=== PATIENT | male | born 1935 | race Caucasian/White ===

== ENCOUNTER → 2019-06-05 | Outpatient (CLI) | payer OTHER ==
[~2019-06-05] MED LIST: ENAL5TAB PO; FINA1TAB13 PO; LATA2.5D2 OP; TAMS0.4C32 PO
== END | disposition home or self-care (01) ==
LOC: RAH 10:00
PROVIDERS: ATTEND Internal Medicine Cardiovascular Disease
DX: Z13.6 Encounter for screening for cardiovascular disorders (principal)
CPT/HCPCS: 75571

== ENCOUNTER 2019-10-21 06:10 | Day surgery (SDC) | payer OTHER ==
[2019-10-16 11:41] VITALS: BP 199/67
[2019-10-16 11:46] LABS: EOSINOPHILS % (AUTO) 4.2 % (0.0-8.0); HEMATOCRIT 41.9 % (42-54); LYMPHOCYTES % (AUTO) 33.3 % (21.0-51.0); MEAN CORPUSCULAR HEMOGLOBIN 31.3 pg (27.0-33.0); MEAN CORPUSCULAR HGB CONC 34.1 g/dL (32.0-36.0); MONOCYTES % (AUTO) 8.3 % (3.0-13.0); NEUTROPHILS % (AUTO) 52.2 % (40.0-77.0); PLATELET COUNT (AUTO) 261 K/uL (130-400); RED BLOOD CELL COUNT(AUTO) 4.56 MIL/uL (4.50-6.20); RED CELL DISTRIBUTION WIDTH 14.9 % (11.0-15.5); WHITE BLOOD COUNT (AUTO) 4.1 K/uL (4.8-10.8)
[2019-10-16 11:52] LABS: CREATININE 0.8 mg/dL (0.5-1.5); POTASSIUM 4.4 mmol/L (3.5-5.1)
[2019-10-16 11:55] LABS: INR 1.01 (0.85-1.15); PARTIAL THROMBOPLASTIN TIME 27.8 SEC (26.3-35.5); PROTHROMBIN TIME 10.6 SEC (9.6-11.6)
[2019-10-16 12:02] LABS: APPEARANCE,URINE Clear (CLEAR); BILIRUBIN,URINE Negative (NEGATIVE); COLOR,URINE Yellow (YELLOW); GLUCOSE, URINE (UA) Negative (NEGATIVE); KETONES,URINE Negative (NEGATIVE); LEUKOCYTE ESTERASE ,URINE Trace (NEGATIVE); NITRATE,URINE Negative (NEGATIVE); OCCULT BLOOD,URINE Negative (NEGATIVE); PH,URINE 6.5 (5.0-8.0); PROTEIN,URINE POS 1+ mg/dL (NEGATIVE)
[2019-10-16 12:10] LABS: BACTERIA,URINE Rare /HPF (None Seen); RBC,URINE 0-1 /HPF (0-1); SQUAMOUS EPITHELIAL CELL,UR Rare /HPF (0-2); WBC,URINE 0-1 /HPF (0-1)
[2019-10-16 12:12] VITALS: BP 184/56
--- NOTE | 2019-10-16 12:23 | NUR ---
pt came in to preop for procedure for 10/21/19, pt blood pressure in lab was 199/67 left arm but first reading on the left arm was 203/62, had patient sit down and relax, did preop interview discussed medication regimen than rechecked bp , bp 184/56 on the right side, called Juan ANGELES and advised him of reading and medications regimen, Per Juan Mathur have pt take 5 mg of Amlodipine po once now and advise pt and to increase dose from now on until further notice to 5mg amlodipine po every night as scheduled , saw pt take two pills of 2.5mg of amlodipine and discussed with pt and the importance of taking medication as orders and addressed that if any concerns they should call md office. No concerns voiced
[~2019-10-21] VITALS: Ht 167.6 cm; Wt 63.4 kg
[2019-10-21] VITALS (10 sets, daily range): BP systolic 128–142; BP diastolic 42–73
[~2019-10-21 06:10] MED LIST changes: +AMLO2.5T4 PO; +ASPI-1181 PO; +ATOR10TA69 PO; -ENAL5TAB PO; -FINA1TAB13 PO; +FINA5TAB41 PO; -LATA2.5D2 OP; +LATA2.5D2 OU; +SODIUM CHLORIDE 0.9% 500ML 500 ML IV SCH; -TAMS0.4C32 PO
[2019-10-21] MEDS ORDERED: SODIUM CHLORIDE 0.9% 1000ML 1,000 ML IV ONE (06:38)
[2019-10-21] MEDS ORDERED: ACET-66 PO (06:42)
[2019-10-21] MEDS ORDERED: IOHEXOL 350 MG/ML 100ML INFUS..BTL IV ONE (06:58)
[2019-10-21] MEDS ORDERED: IOHEXOL-350 75 ML VIAL IV ONE (06:58)
[2019-10-21] MEDS ORDERED: NITROGLYCERIN 5 MG/ML 10 ML VIAL IV ONE (06:58)
[2019-10-21] MEDS ORDERED: LIDOCAINE HCL 2% 20ML ONE (06:58)
[2019-10-21] MEDS ORDERED: IOHEXOL-350 50ML VIAL IV ONE (06:58)
--- NOTE | 2019-10-21 07:15 | NUR ---
PROCEDURE PT TAKEN TO [facility] FOR SCHEDULED PROCEDURE. SPOUSE AT BEDSIDE
[2019-10-21] MEDS ORDERED: MIDAZOLAM HCL 1 MG/ML 2ML VIAL ONE (07:41)
[2019-10-21] MEDS ORDERED: FENTANYL CITRATE PF 50 MCG/1 ML 2ML VIAL ONE (07:41)
[2019-10-21] MEDS ORDERED: HYDRALAZINE HCL 20 MG/ML VIAL ONE (08:04)
[2019-10-21] MEDS ORDERED: SODIUM CHLORIDE 0.9% 1000ML 1,000 ML IV SCH (08:12)
[2019-10-21] MEDS ORDERED: NITROGLYCERIN 0.4 MG SL TAB SL PRN (08:15)
[2019-10-21] MEDS ORDERED: GLUCAGON 1MG KIT 1 MG ML IM PRN (08:15)
[2019-10-21] MEDS ORDERED: ACETAMINOPHEN-CODEINE 300/30MG TAB PO PRN (08:15)
[2019-10-21] MEDS ORDERED: DEXTROSE 50%-WATER 50 ML DISP.SYRIN IV PRN (08:15)
[2019-10-21] MEDS ORDERED: HYDRALAZINE HCL 20 MG/ML VIAL IV PRN (08:15)
--- NOTE | 2019-10-21 08:38 | NUR ---
post received pt back from lab courier, s/p [facility], patient awake and alert ,no distress noted. right groin with no bleeding or hematoma, see post cath assessment. vs stable. pt i nstructed to keep bedrest for 2hrs, and keep right leg straight. plan of care discuss with patient/ spouse, both verbalized understanding. call light within reach
--- NOTE | 2019-10-21 11:00 | NUR ---
REPORT REPORT GIVEN TO DOMONIQUE SALGADO RN. TO RESUME CARE OF PATIENT. RIGHT GROIN DRESSING DRY AND INTACT, NO BLEEDING ODR HEMATOMA TO SITE VS STABLE
--- NOTE | 2019-10-21 13:00 | NUR ---
PT. LEFT VIA WHEELCHAIR IN PVT CAR WITH D/C INSTRUCTIONS GIVEN TO . NO COMPLICATIONS DRESSING DRY AND INTACT, NO HEMATOMA, NO BLEEDING, NO PAIN, DP BILATERAL PRESENT.
== END 2019-10-21 13:00 ==
LOC: DAH 06:10
PROVIDERS: ATTEND Internal Medicine Cardiovascular Disease
DX: I25.10 Atherosclerotic heart disease of native coronary artery without angina pectoris (principal); R94.39 Abnormal result of other cardiovascular function study; E78.5 Hyperlipidemia, unspecified; I10 Essential (primary) hypertension; Z72.89 Other problems related to lifestyle; Z79.82 Long term (current) use of aspirin; Z79.01 Long term (current) use of anticoagulants; Z79.899 Other long term (current) drug therapy; Z87.891 Personal history of nicotine dependence; Z82.49 Family history of ischemic heart disease and other diseases of the circulatory system
CPT/HCPCS: 36415; 71045; 80048; 81001; 85025; 85610; 85730; 93005; 93458; A4215; A4216; A4221; A4223 ×3; A4606; A4663; C1760; C1894 ×2; J0360; J1644 ×2; J3490 ×2; J7030; Q9965; Q9967 ×2; J2250; J3010

== ENCOUNTER → 2021-09-27 | Outpatient (CLI) | payer OTHER ==
[~2021-09-27] MED LIST changes: +ACET-66 PO; -ASPI-1181 PO; +ASPI-1443 PO; +LATA2.5D14 OU; -LATA2.5D2 OU; -SODIUM CHLORIDE 0.9% 500ML 500 ML IV SCH
== END | disposition home or self-care (01) ==
LOC: SHCH 13:53
PROVIDERS: ATTEND Internal Medicine Cardiovascular Disease
DX: I11.9 Hypertensive heart disease without heart failure (principal); G45.1 Carotid artery syndrome (hemispheric); E78.5 Hyperlipidemia, unspecified
CPT/HCPCS: 93306; 93356; 93880

== ENCOUNTER 2022-02-22 15:09 | Inpatient (IN) | payer OTHER ==
[~2022-02-22] VITALS: Ht 167.6 cm; Wt 68.2 kg
[2022-02-22] VITALS (8 sets, daily range): BP systolic 168–193; BP diastolic 46–86
[2022-02-22 15:40] LABS: BASOPHILS % (AUTO) 0.8 % (0.0-5.0); EOSINOPHILS % (AUTO) 0.9 % (0.0-8.0); HEMATOCRIT 39.3 % (42-54); LYMPHOCYTES % (AUTO) 34.2 % (21.0-51.0); MEAN CORPUSCULAR HEMOGLOBIN 29.8 pg (27.0-33.0); MEAN CORPUSCULAR HGB CONC 33.6 g/dL (32.0-36.0); MEAN CORPUSCULAR VOLUME 88.7 fL (79-99); MONOCYTES % (AUTO) 8.4 % (3.0-13.0); NEUTROPHILS % (AUTO) 55.4 % (40.0-77.0); PLATELET COUNT (AUTO) 224 K/uL (130-400); RED BLOOD CELL COUNT(AUTO) 4.43 MIL/uL (4.50-6.20); RED CELL DISTRIBUTION WIDTH 14.4 % (11.0-15.5); WHITE BLOOD COUNT (AUTO) 6.6 K/uL (4.8-10.8)
[2022-02-22 15:50] LABS: CREATININE 1.1 mg/dL (0.5-1.5); POTASSIUM 3.4 mmol/L (3.5-5.1)
[2022-02-22 15:57] LABS: BILIRUBIN,TOTAL 0.6 mg/dL (0.2-1.0); TOTAL PROTEIN, SERUM 5.7 g/dL (6.0-8.3)
[2022-02-22] MEDS ORDERED: AMLO2.5T4 PO (16:31)
[2022-02-22] MEDS ORDERED: ACETAMINOPHEN 325 MG TAB PO PRN (17:30)
[2022-02-22 17:39] LABS: INR 1.08 (0.85-1.15); PROTHROMBIN TIME 11.7 SEC (9.6-11.6)
[2022-02-22 17:40] LABS: PARTIAL THROMBOPLASTIN TIME 22.8 SEC (26.3-35.5)
[2022-02-22 17:55] LABS: THYROID STIMULATING HORMONE 2.52 uIU/mL (0.36-3.74)
[2022-02-22 18:06] LABS: CRP QUANTITATIVE < 2.00 mg/L (0.00-9.0)
[2022-02-22 19:40] LABS: APPEARANCE,URINE Clear (CLEAR); BILIRUBIN,URINE Negative (NEGATIVE); COLOR,URINE Yellow (YELLOW); GLUCOSE, URINE (UA) Negative (NEGATIVE); KETONES,URINE Negative (NEGATIVE); LEUKOCYTE ESTERASE ,URINE Negative (NEGATIVE); NITRATE,URINE Negative (NEGATIVE); OCCULT BLOOD,URINE Negative (NEGATIVE); PROTEIN,URINE POS 1+ mg/dL (NEGATIVE)
[2022-02-22 19:50] LABS: RBC,URINE 0-1 /HPF (0-1); WBC,URINE 0-1 /HPF (0-1)
[2022-02-22 19:51] LABS: BACTERIA,URINE Rare /HPF (None Seen); MUCUS,URINE Rare LPF (None Seen); SQUAMOUS EPITHELIAL CELL,UR Rare /HPF (0-2)
[2022-02-23] VITALS (28 sets, daily range): BP systolic 138–182; BP diastolic 45–97
[2022-02-23 06:50] LABS: BASOPHILS % (AUTO) 1.5 % (0.0-5.0); EOSINOPHILS % (AUTO) 2.4 % (0.0-8.0); HEMATOCRIT 39.2 % (42-54); LYMPHOCYTES % (AUTO) 42.4 % (21.0-51.0); MEAN CORPUSCULAR HEMOGLOBIN 29.7 pg (27.0-33.0); MEAN CORPUSCULAR HGB CONC 33.9 g/dL (32.0-36.0); MEAN CORPUSCULAR VOLUME 87.5 fL (79-99); NEUTROPHILS % (AUTO) 44.3 % (40.0-77.0); PLATELET COUNT (AUTO) 241 K/uL (130-400); RED BLOOD CELL COUNT(AUTO) 4.48 MIL/uL (4.50-6.20); RED CELL DISTRIBUTION WIDTH 14.3 % (11.0-15.5); WHITE BLOOD COUNT (AUTO) 5.5 K/uL (4.8-10.8)
[2022-02-23 07:09] LABS: ALBUMIN 2.8 g/dL (3.5-5.0); BILIRUBIN,TOTAL 0.8 mg/dL (0.2-1.0); CREATININE 0.7 mg/dL (0.5-1.5); MAGNESIUM 2.1 mg/dL (1.80-2.40); POTASSIUM 3.5 mmol/L (3.5-5.1); TOTAL PROTEIN, SERUM 5.6 g/dL (6.0-8.3)
[2022-02-23] MEDS ORDERED: LATA7.5D OU (07:42)
[2022-02-23] MEDS ORDERED: BRIM5DRO4 OU (07:42)
[2022-02-23] MEDS: PANTOPRAZOLE 40 MG TAB DR PO SCH (08:59)
[2022-02-23] MEDS: AMLODIPINE 2.5 MG TAB PO SCH ×2 (08:59→20:51)
[2022-02-23] MEDS ORDERED: VANCOMYCIN 1G 1 GM in 0.9% NACL 250ML 250 ML IV PRN (12:00)
[2022-02-23] MEDS: VANCOMYCIN 1G/250ML KIT 250 ML IV SCH (12:00)
[2022-02-23] MEDS ORDERED: LIDOCAINE HCL 400MG/20ML VIAL ONE ×2 (15:24→15:59)
[2022-02-23] MEDS ORDERED: MEPERIDINE-PF 25 MG/ML SYG ONE ×2 (15:24→16:11)
[2022-02-23] MEDS ORDERED: MIDAZOLAM HCL 1 MG/ML 2ML VIAL ONE ×2 (15:24→16:11)
[2022-02-23] MEDS ORDERED: IODIXANOL 320 MG/ML 100 ML VIAL ONE (15:29)
[2022-02-23] MEDS ORDERED: BUPIVACAINE/PF 0.25% 10ML VIAL IJ ONE (15:48)
[2022-02-23] MEDS: ACETAMINOPHEN WITH CODEINE 1 TAB TAB PO PRN ×2 (18:34→22:13)
[2022-02-23] MEDS ORDERED: CALCIUM CARB 500MG CHEW TAB PO ONE (22:00)
[2022-02-24] VITALS (9 sets, daily range): BP systolic 88–167; BP diastolic 56–74
[2022-02-24] MEDS: ACETAMINOPHEN WITH CODEINE 1 TAB TAB PO PRN ×2 (03:25→07:54)
[2022-02-24 03:40] LABS: HEMATOCRIT 40.3 % (42-54); MEAN CORPUSCULAR HEMOGLOBIN 30.1 pg (27.0-33.0); MEAN CORPUSCULAR HGB CONC 34.5 g/dL (32.0-36.0); MEAN CORPUSCULAR VOLUME 87.2 fL (79-99); RED BLOOD CELL COUNT(AUTO) 4.62 MIL/uL (4.50-6.20); RED CELL DISTRIBUTION WIDTH 14.4 % (11.0-15.5); WHITE BLOOD COUNT (AUTO) 9.1 K/uL (4.8-10.8)
[2022-02-24 03:52] LABS: CREATININE 0.7 mg/dL (0.5-1.5); POTASSIUM 3.9 mmol/L (3.5-5.1)
[2022-02-24] MEDS: AMLODIPINE 2.5 MG TAB PO SCH (09:00)
[2022-02-24] MEDS: PANTOPRAZOLE 40 MG TAB DR PO SCH (09:38)
[2022-02-24] MEDS: VANCOMYCIN 1G/250ML KIT 250 ML IV SCH (12:00)
[2022-02-24] MEDS ORDERED: MEPERIDINE-PF 25 MG/ML SYG ONE ×2 (12:04→12:37)
[2022-02-24] MEDS ORDERED: BUPIVACAINE/PF 0.25% 30ML VIAL IJ ONE (12:04)
[2022-02-24] MEDS ORDERED: LIDOCAINE HCL 1% MDV 50ML VIAL ONE (12:05)
[2022-02-24] MEDS ORDERED: MIDAZOLAM HCL 1 MG/ML 2ML VIAL ONE (12:05)
[2022-02-24] MEDS ORDERED: ACETAMINOPHEN WITH CODEINE 1 TAB TAB PO PRN (14:30)
[2022-02-24] MEDS ORDERED: ACETAMINOPHEN 500 MG TABLET PO PRN (14:30)
== END 2022-02-24 18:45 | disposition home or self-care (01) | DRG 243 ==
LOC: EDH 15:09 → EDHIP 16:57 → 2CH 20:29 → 2AH 02-23 18:20
PROVIDERS: ADMIT Hospitalist; ATTEND Hospitalist
PROC: 0JH606Z Insertion of Pacemaker, Dual Chamber into Chest Subcutaneous Tissue and Fascia, Open Approach (ICD-10-PCS; principal; 2022-02-23)
PROC: 02H63JZ Insertion of Pacemaker Lead into Right Atrium, Percutaneous Approach (ICD-10-PCS; 2022-02-23)
PROC: 02HK3JZ Insertion of Pacemaker Lead into Right Ventricle, Percutaneous Approach (ICD-10-PCS; 2022-02-23)
PROC: 02WA3MZ Revision of Cardiac Lead in Heart, Percutaneous Approach (ICD-10-PCS; 2022-02-24)
DX: I49.5 Sick sinus syndrome (principal); I45.2 Bifascicular block; I44.0 Atrioventricular block, first degree; I95.9 Hypotension, unspecified; I25.10 Atherosclerotic heart disease of native coronary artery without angina pectoris; Z20.822 Contact with and (suspected) exposure to COVID-19; I10 Essential (primary) hypertension; E78.5 Hyperlipidemia, unspecified; R54 Age-related physical debility
CPT/HCPCS: 33208; 33215; 36415; 71045; 80048; 80053; 81001; 82550; 83735; 83874; 84145; 84439; 84443; 84481; 84484; 85025; 85027; 85610; 85651; 85730; 86140; 87635; 87804; 93005; 93306; 99156; 99157; C1785; G0378; J2175; J2250; J3370; J3490; Q9967

== ENCOUNTER 2023-12-31 11:42 | Emergency (ER) | payer OTHER ==
[~2023-12-31] VITALS: Ht 167.6 cm; Wt 68.0 kg
[~2023-12-31 11:42] MED LIST changes: -ACET-66 PO; -ASPI-1443 PO; +BRIM5DRO5 OU; -LATA2.5D14 OU; +LATA7.5D OU
[2023-12-31 13:34] LABS: BASOPHILS # (AUTO) 0.06 K/uL (0.00-0.20); BASOPHILS % (AUTO) 0.9 % (0.0-5.0); EOSINOPHILS # (AUTO) 0.12 K/uL (0.00-0.70); EOSINOPHILS % (AUTO) 1.7 % (0.0-8.0); HEMATOCRIT 41.9 % (42-54); IMMATURE GRANULOCYTE ABSOLUTE 0.02 K/uL (0-1); LYMPHOCYTES # (AUTO) 1.1 K/uL (1.0-4.8); MEAN CORPUSCULAR HEMOGLOBIN 29.6 pg (27.0-33.0); MEAN CORPUSCULAR HGB CONC 33.9 g/dL (32.0-36.0); MEAN CORPUSCULAR VOLUME 87.3 fL (79-99); MONOCYTES # (AUTO) 0.4 K/uL (0.1-1.0); MONOCYTES % (AUTO) 6.3 % (3.0-13.0); NEUTROPHILS # (AUTO) 5.2 K/uL (1.8-7.7); NEUTROPHILS % (AUTO) 74.8 % (40.0-77.0); PLATELET COUNT (AUTO) 242 K/uL (130-400); RED CELL DISTRIBUTION WIDTH 14.8 % (11.0-15.5); WHITE BLOOD COUNT (AUTO) 6.9 K/uL (4.8-10.8)
[2023-12-31 13:41] LABS: CARBON DIOXIDE 31 mmol/L (21-32); CHLORIDE 104 mmol/L (101-111); CREATININE 0.9 mg/dL (0.5-1.5); GLOMERULAR FILTR. RATE CALC 83 mL/min (>90); GLUCOSE,RANDOM 113 mg/dL (70-105); POTASSIUM 4.4 mmol/L (3.5-5.1); SODIUM SERUM 140 mmol/L (136-145); UREA NITROGEN, BLOOD 16 mg/dL (7-18)
[2023-12-31 13:55] LABS: THYROID STIMULATING HORMONE 2.03 uIU/mL (0.36-3.74)
[2023-12-31 13:56] LABS: ALCOHOL, BLOOD < 3 mg/dL (0-10)
[2023-12-31 14:47] VITALS: BP 124/56; PULSE 65; RESP 18; O2SAT 98
== END 2023-12-31 14:47 | disposition home or self-care (01) ==
LOC: EDH 11:42
DX: F41.9 Anxiety disorder, unspecified (principal); Z79.899 Other long term (current) drug therapy; Z95.810 Presence of automatic (implantable) cardiac defibrillator
CPT/HCPCS: 36415; 80048; 83735; 84443; 84484; 85025; 93005

== ENCOUNTER → 2024-02-23 | Outpatient (CLI) | payer OTHER | END | disposition home or self-care (01) | LOC: SHCH 10:00 | PROVIDERS: ATTEND Internal Medicine Cardiovascular Disease | DX: I35.2 Nonrheumatic aortic (valve) stenosis with insufficiency (principal) | CPT/HCPCS: 93306 ==

== ENCOUNTER → 2024-09-08 | Outpatient (CLI) | payer OTHER ==
[2024-09-08 16:17] LABS: CREATININE 0.8 mg/dL (0.5-1.3); POTASSIUM 3.6 mmol/L (3.5-5.1)
== END | disposition home or self-care (01) ==
LOC: RAH 14:40
PROVIDERS: ATTEND Internal Medicine Cardiovascular Disease
DX: Z01.812 Encounter for preprocedural laboratory examination (principal); R06.02 Shortness of breath
CPT/HCPCS: 36415; 80048

== ENCOUNTER → 2024-09-30 | Outpatient (CLI) | payer OTHER ==
[~2024-09-30] MED LIST changes: +IOHEXOL 350 MG/ML 100ML INFUS..BTL IV ONE
--- NOTE | 2024-09-30 16:22 | HMCIMG ---
CT CARDIAC ANGIO W/CONT. CCTA HISTORY: Chronic ischemic heart disease COMPARISON: None TECHNIQUE: Multiple sequential axial images of the chest were obtained along with the CT angiogram of the chest study. Patient was given 100 cc of Omnipaque through intravenous route. FINDINGS: There is no evidence of pulmonary nodule or parenchymal disease. No pleural effusion or pericardial effusion is seen. There is no evidence of pneumothorax. There are normal size mediastinal and hilar lymph nodes. The heart is not enlarged. Degenerative changes of the thoracolumbar spine are present. There is hiatal hernia. IMPRESSION: 1. No evidence of pulmonary nodule or effusion or aortic dissection is seen. Small hiatal hernia. Please see CT angiogram report of coronary arteries.
--- NOTE | 2024-10-05 11:26 | CARDIOLOGY ---
RAD REPORT: [facility] CT ANGIO RADIOLOGY REPORT: CORONARY CT ANGIOGRAPHY DATE: Oct 05, 2024 QUALITY: Excellent CLINICAL HISTORY AND INDICATION: [inferior defect stress test, h/o non obstructive CAD ] TECHNIQUE: After obtaining a preliminary powder and primer canning leader image, contrast imaging performed on an [employer] [id number] scanner. A dedicated, limited window, coronary imaging protocol was used, with single breath-hold, retrospective ECG gating, and automated arrhythmia rejection. 100 cc of low osmolar contrast agent: Omnipaque 350 was delivered via a 18-gauge IV catheter in the right antecubital fossa, using a power injector and followed by 60 cc of normal saline bolus as a chaser. Collimated images were reformatted at 0.5 mm intervals, and sent to an offline independent workstation for interpretation, using 3D anatomic reconstructions: Curved multiplanar reconstructions, maximum intensity projections, and multiplanar imaging. No metoprolol was administered prior to scanning due to low baseline heart rate. 0.8 mg SL nitroglycerin was given. CORONARY ARTERY DESCRIPTIONS: The coronary arteries arise in normal position. Left main coronary artery: Normal caliber vessel that bifurcates into the LAD and LCx. There is mixed calcified and noncalcified plaque in the mid to distal left main with 20% stenosis. Left anterior descending coronary artery: Normal caliber vessel and gives rise to diagonal and septal branches. There is mixed calcified and noncalcified plaque in the mid LAD just prior to Diagonal 2 takeoff with 70-80% stenosis. There is mixed calcified and noncalcified plaque in the proximal D2 with 30-40% stenosis. The distal segments of the Diagonal 2 artery is not well visualized due to motion artifact. Left circumflex coronary artery: Normal caliber, dominant and gives rise to a large OM branch. There is mixed calcified and noncalcified plaque in the proximal LCx with 30-40% stenosis. There is mixed calcified and noncalcified plaque in the mid LCx with 50-60% stenosis. The L PDA is not well visualized due to motion artifact. Right coronary artery: Heavily calcified small non-dominant RCA. Due to motion artifact, not able to quantify luminal stenosis. CAD-RADs: 4A, severe stenosis of mid LAD. P3. Patient was not able to do breath holding during scan and is associated with coronary artery motion artifact. Luminal stenosis may be overestimated. Ashley Aguirre MD Cardiovascular Disease [facility] ASHLEY AGUIRRE MD Oct 05, 2024 11:26
== END | disposition home or self-care (01) ==
LOC: RAH 09:04
PROVIDERS: ATTEND Internal Medicine Cardiovascular Disease
DX: I25.10 Atherosclerotic heart disease of native coronary artery without angina pectoris (principal); K44.9 Diaphragmatic hernia without obstruction or gangrene; M47.815 Spondylosis without myelopathy or radiculopathy, thoracolumbar region; I25.9 Chronic ischemic heart disease, unspecified; I25.42 Coronary artery dissection; R06.09 Other forms of dyspnea
CPT/HCPCS: 75574; Q9967